=== PATIENT | female | born 1980 | race Caucasian/White ===

== ENCOUNTER 2023-12-08 09:59 | Emergency (ER) | payer OTHER, SELFPAY ==
--- NOTE | ~2023-12-08 | NM_ITS ---
NM pulmonary perfusion DATE: 12/08/2023 12:48 INDICATION: Hemoptysis. Covid-positive. TECHNIQUE: 8 standard perfusion images of the lungs were obtained after intravenous injection of 5.5 mCi 99m technetium MAA. COMPARISON: 12/08/2023 portable AP chest FINDINGS: There is normal distribution of MAA throughout both lungs without any segmental, subsegment al or lobar defects. IMPRESSION: Negative pulmonary perfusion scan; no evidence of clinically significant pulmonary embolu s Reviewed, dictated and finalized at [facility]. Reviewed, dictated and finalized at [facility]. IAL EFFECTS TECHNICIAN IMPRESSION: Negative pulmonary perfusion scan; no evidence of clinically signif icant pulmonary embolus
--- NOTE | ~2023-12-08 | XR_ITS ---
XR chest 1V portable DATE: 12/08/2023 12:50 INDICATION: Cough, hemoptysis TECHNIQUE: Portable upright AP chest on 12/08/2023 at 1247 hours COMPARISON: March 10, 2011 PA and lateral chest FINDINGS: Normal heart size. No hilar or mediastinal enlargement. No pulmonary infiltrate or consolid ation, pleural effusion or pulmonary vascular congestion or pneumothorax. Included skeletal structure s are unremarkable. IMPRESSION: No active cardiopulmonary disease Reviewed, dictated and finalized at [facility]. S AND SERVICE MANAGER
[2023-12-08 09:54] VITALS: BP 90/60; PULSE 81; RESP 17; TEMP 37.5; O2SAT 98
--- NOTE | 2023-12-08 10:08 | ECG_ITS ---
Measurements Intervals [place] Rate: 75 P: 44 TN: 148 QRS: 14 QRSD: 90 T: 44 QT: 388 QTc: 436 Interpretive Statements SINUS RHYTHM BASELINE ARTIFACT- I, III, AVL NORMAL ECG NO PREVIOUS ECG AVAILABLE FOR COMPARISON Electronically Signed On 12-08-2023 11:37:56 [employer]IFICIAL [employer] TIER by Frandy Hernández D.O.
[2023-12-08 10:51] LABS: Basophils Percent Auto 0.8 % (0.2-1.2); Eosinophils Absolute Auto 0.1 K/mm3 (0-0.3); Eosinophils Percent Auto 1.2 % (0-4.4); Hematocrit 39.1 % (37.0-47.0); Hemoglobin 12.9 g/dL (12.0-15.0); Immature Granulocyte Absolute 0.02 K/mm3 (0.00-0.031); Immature Granulocyte Percent A 0.4 % (0-0.5); Lymphocytes Absolute Auto 1.14 K/mm3 (0.9-3.2); Lymphocytes Percent Auto 21.9 % (18.3-44.2); Mean Corpuscular Hemoglobin 30.4 pg (26-34); Mean Platelet Volume 10.1 fl (7.4-10.4); Monocytes Absolute Auto 0.8 K/mm3 (0.1-0.6); Monocytes Percent Auto 14.6 % (2.6-8.5); Neutrophils Absolute Auto 3.2 K/mm3 (1.3-6.7); Neutrophils Percent Auto 61.1 % (45.5-73.1); Platelet Count Result 189 k/mm3 (150-375); Red Blood Count 4.25 M/mm3 (4.2-5.4); Red Cell Distribution Width 12.2 % (11.5-14.5); White Blood Count 5.2 K/mm3 (4.5-10.0)
--- NOTE | 2023-12-08 10:55 | ED.GENADULT ---
HPI - General Adult General Chief complaint: Upper Respiratory Infection Stated complaint: COVID+, bloody sputum Time Seen by Provider: 12/08/23 10:08 Source: patient Mode of arrival: EMS Limitations: no limitations History of Present Illness HPI narrative: Patient is a 43-year-old female, with PMH of epilepsy, CVA, psychiatric disorders, previous heroin abuse currently on Suboxone, who presents the ED via EMS with report of hemoptysis. Patient reports having URI symptoms for the last 2 days. She tested positive via home test for COVID-19 yesterday. She is vaccinated for COVID. This morning, patient reports she coughed up a small amount of bright red blood. States it was about a teaspoon of blood, unsure if it was mixed with sputum. Unsure if she was forcefully coughing or not. She is concerned she may have pneumonia. Reports mild difficulty breathing, but states it is mostly at night when she is lying flat and has sinus drainage. Denies PRADO. Denies chest pain. Denies fevers. Denies N/V, abdominal pain. Denies lower extremity pain or swelling. No previous history of blood clots. Related Data Home Medications Medication Instructions Recorded Confirmed buprenorphine 4 mg-naloxone 1 mg 1 film buccal BID 12/08/23 12/08/23 sublingual film cariprazine 4.5 mg capsule 4.5 mg PO DAILY 12/08/23 12/08/23 (Vraylar) divalproex 500 mg tablet,extended 500 mg PO DAILY 12/08/23 12/08/23 release 24 hr ergocalciferol (vitamin D2) 25,000 50,000 unit PO WEEKLY 12/08/23 12/08/23 unit capsule gabapentin 100 mg capsule 100 mg PO TID 12/08/23 12/08/23 hydroxyzine HCl 25 mg tablet 25 mg PO BID PRN Anxiety 12/08/23 12/08/23 levetiracetam 500 mg tablet 500 mg PO BID 12/08/23 12/08/23 risperidone 2 mg tablet 2 mg PO HS 12/08/23 12/08/23 sennosides 8.6 mg tablet (senna) 8.6 mg PO HS PRN Constipation 12/08/23 12/08/23 topiramate 100 mg tablet 100 mg PO BID 12/08/23 12/08/23 Allergies Allergy/AdvReac Type Severity Reaction Status Date / Time iodine Allergy Unknown Unknown Verified 12/08/23 10:07 Contrast Media Allergy Unknown Unknown Uncoded 12/08/23 10:07 Review of Systems Review of Systems: CONSTITUTIONAL: Denies fever, chills, or sweats. ENT: See HPI CARDIOVASCULAR: Denies chest pain. RESPIRATORY: See HPI GASTROINTESTINAL: Denies abdominal pain, nausea, vomiting. All systems reviewed & are unremarkable except as noted in HPI and below Exam Narrative: GENERAL: Well appearing, well-nourished, non-toxic, in no acute distress. HEAD: Normocephalic, atraumatic. RESPIRATORY: Airway patent, respirations nonlabored. Clear to auscultation bilaterally, no rales, rhonchi, wheezing. No significant focal lung sounds. CARDIOVASCULAR: Regular rate and rhythm without murmurs, rubs, or gallops. Radial pulses 2+ MUSCULOSKELETAL: Moves all extremities. No gross deformities. No lower extremity edema. No calf tenderness. SKIN: Warm, dry, normal color. NEURO: A&O X3. Speech clear. Cranial nerves II-XII grossly intact. Steady gait. No ataxic movements. PSYCHIATRIC: Flat affect. Normal interaction. Course Vital Signs Vital signs: Vital Signs Temperature 99.5 F 12/08/23 09:54 Pulse Rate 81 12/08/23 09:54 Respiratory Rate 17 12/08/23 09:54 Blood Pressure 90/60 L 12/08/23 09:54 Pulse Oximetry 98 12/08/23 09:54 Oxygen Delivery Room Air 12/08/23 09:54 Temperature 99.5 F 12/08/23 09:54 Pulse Rate 68 12/08/23 14:23 Respiratory Rate 12 12/08/23 14:23 Blood Pressure 100/65 12/08/23 14:23 Pulse Oximetry 100 12/08/23 14:23 Oxygen Delivery Room Air 12/08/23 09:54 Medical Decision Making [facility] Narrative Medical decision making narrative: Patient presented to ED with known COVID-19 infection, small amount of hemoptysis today. Patient borderline hypotensive upon arrival. Fluids initiated. EKG with normal sinus rhythm, no significant ST changes. Troponin negative X 2. BNP essentially WNL. Basic l
[2023-12-08 11:00] LABS: Alanine Aminotransferase 19 U/L (6-35); Albumin Level 4.2 g/dL (3.5-5.1); Alkaline Phosphatase 76 U/L (38-126); Anion Gap 11 mmol/L (8-16); Aspartate Amino Transferase 21 U/L (14-36); Bilirubin,Total 0.3 mg/dL (0.2-1.3); Blood Urea Nitrogen 8 mg/dL (7-17); Calcium 9.2 mg/dL (8.4-10.2); Carbon Dioxide 21 mmol/L (22-30); Chloride 107 mmol/L (98-107); Estimated CRCL calculation 81 ml/min; Estimated Glomerular Filt Rate > 60; Glucose 107 mg/dL (65-110); Potassium 4.1 mmol/L (3.4-5.0); Prothrombin Time 13.2 Seconds (11.1-14.7); Sodium 139 mmol/L (137-145)
[2023-12-08 11:01] LABS: Partial Thromboplastin Time 26.2 SECONDS (22.3-36.8)
[2023-12-08 11:12] LABS: NT Pro B Type Natriuretic Pept 122 pg/mL (19.9-100); Troponin I < 0.012 ng/mL (0.000-0.034)
[2023-12-08] MEDS: SODIUM CHLORIDE 0.9% IV 1,000 ML 999 ML IV CONT ×2 (11:44→13:16)
[2023-12-08 11:46] VITALS: BP 96/61; PULSE 73; RESP 17; O2SAT 100
[2023-12-08 12:07] LABS: Influenza A QL RT-PCR Negative (Negative); Influenza B QL RT-PCR Negative (Negative); RSV RNA, RT-PCR Negative (Negative); SARS-CoV-2 RNA PCR Positive (Negative)
[2023-12-08 13:16] VITALS: BP 91/67; PULSE 70; RESP 12; O2SAT 100
--- NOTE | 2023-12-08 13:24 | ECG_ITS ---
Measurements Intervals [place] Rate: 62 P: 44 MD: 166 QRS: 10 QRSD: 90 T: 30 QT: 429 QTc: 438 Interpretive Statements SINUS RHYTHM NORMAL ECG COMPARED TO ECG 12/08/2023 10:46:52 NO SIGNIFICANT CHANGES Electronically Signed On 12-08-2023 13:38:12 SPEEDOMETER MECHANIC by Frandy Hernández D.O.
[2023-12-08 13:53] LABS: Troponin I < 0.012 ng/mL (0.000-0.034)
[2023-12-08 14:23] VITALS: BP 100/65; PULSE 68; RESP 12; O2SAT 100
== END 2023-12-08 14:25 | disposition home or self-care (01) ==
PROVIDERS: Emergency Provider Physician Assistant
DX: U07.1 COVID-19 (principal); R05.1 Acute cough; G40.909 Epilepsy, unspecified, not intractable, without status epilepticus; Z86.73 Personal history of transient ischemic attack (TIA), and cerebral infarction without residual deficits
CPT/HCPCS: 36415; 71045; 78580; 80053; 83880; 84484; 85025; 85610; 85730; 87637; 93005; 96360; 96361; 99284; A9540; J7030